=== PATIENT | female | born 1990 | race American Indian/Alaskan Native ===

== ENCOUNTER 2018-10-31 20:48 | Emergency (ER) | payer SELFPAY ==
[2018-10-31 22:27] VITALS: BP 124/84
--- NOTE | 2018-10-31 22:27 | Event Note ---
ED Screening Note Date of service: 10/31/18 Time: 22:26 ED Screening Note: 27 y/o female with a history of psych disorder comes in for needing refills on her medication. This initial assessment/diagnostic orders/clinical plan/treatment(s) is/are subject to change based on patients health status, clinical progression and re- assessment by fellow clinical providers in the ED. Further treatment and workup at subsequent clinical providers discretion. Patient/guardian urged not to elope from the ED as their condition may be serious if not clinically assessed and managed. Initial orders include:
--- NOTE | 2018-10-31 23:48 | Emergency Department Report ---
ED Medical Clearance [facility] - General Chief complaint: Medical Clearance Stated complaint: MEDICATION REFILL Time Seen by Provider: 10/31/18 22:26 Source: patient Mode of arrival: Ambulatory - History of Present Illness Initial comments: Patient is a 27 yo AA female with a h/o chronic schizophrenia, Bipolar d/o, anxiety and depression and who is on medication presented to the ED accompanied by her mother for medication refills after she ran out of her medications 1 week ago. Per mother, patient is compliant with her medications and is currently stable. Mother also states that the patient has not had any chest pain, dyspnea, nausea, vomiting, dizziness, fever, chills, dysuria, hematuria, headache or suicidal and homicidal ideations, hallucinations or vision changes. MD Complaint: medical clearance request, other (Medication refills) -: Gradual, week(s) (1) Reason for Medical Clearance: psychiatric condition (chronic schizophrenia) Place: home Alledged Intoxication: No Compliant with Home Medications: Yes (Ran out of her medications) Traumatic Symptoms: denies traumatic injury Associated Symptoms: denies: chest pain, shortness of breath, palpitations, diaphoresis, denies other symptoms, confusion, cough, fever/chills, headaches, anorexia, malaise, nausea/vomiting, rash, seizure, syncope, weakness, other Treatments Prior to Arrival: none Home medications: Previous Rx's Medication Instructions Recorded Last Taken Type Benztropine Mesylate 1 mg PO Q12H #60 tablet 10/31/18 Unknown Rx Divalproex ER [Depakote ER] 500 mg PO Q12H #60 tablet 10/31/18 Unknown Rx OLANzapine [Zyprexa] 10 mg PO QHS #30 tablet 10/31/18 Unknown Rx Allergies/Adverse reactions: Allergies Allergy/AdvReac Type Severity Reaction Status Date / Time No Known Allergies Allergy Unverified 10/31/18 21:41 ED Review of Systems ROS: Stated complaint: MEDICATION REFILL Other details as noted in HPI Comment: All other systems reviewed and negative Constitutional: denies: chills, fever Eyes: denies: eye pain, eye discharge, vision change ENT: denies: ear pain, throat pain Respiratory: denies: cough, shortness of breath, wheezing Cardiovascular: denies: chest pain, palpitations Endocrine: no symptoms reported Gastrointestinal: denies: abdominal pain, nausea, diarrhea Genitourinary: denies: urgency, dysuria, discharge Musculoskeletal: denies: back pain, joint swelling, arthralgia Skin: denies: rash, lesions Neurological: denies: headache, weakness, paresthesias Psychiatric: denies: anxiety, depression Hematological/Lymphatic: denies: easy bleeding, easy bruising ED Past Medical Hx - Past Medical History Previous Medical History?: Yes Hx Psychiatric Treatment: Yes (Schizophrenia, Bipolar, NOS, Anxiety, panic) - Surgical History Past Surgical History?: No - Social History Smoking Status: Current Every Day Smoker Substance Use Type: None - Medications Home Medications: Home Medications Medication Instructions Recorded Confirmed Last Taken Type Benztropine Mesylate 1 mg PO Q12H #60 tablet 10/31/18 Unknown Rx Divalproex ER [Depakote ER] 500 mg PO Q12H #60 tablet 10/31/18 Unknown Rx OLANzapine [Zyprexa] 10 mg PO QHS #30 tablet 10/31/18 Unknown Rx ED Physical Exam - General Limitations: No Limitations General appearance: alert, in no apparent distress - Head Head exam: Present: atraumatic, normocephalic, normal inspection - Eye Eye exam: Present: normal appearance, PERRL, EOMI Pupils: Present: normal accommodation - ENT ENT exam: Present: normal exam, normal orophraynx, mucous membranes moist, TM's normal bilaterally, normal external ear exam - Neck Neck exam: Present: normal inspection, full ROM. Absent: tenderness, meningismus, lymphadenopathy, thyromegaly - Respiratory Respiratory exam: Present: normal lung sounds bilaterally. Absent: respiratory distress, wheezes, rales, rhonchi, stridor, chest wall tenderness, accessory muscle use, decreased breath sounds, prolonged expiratory - Cardiovascular Cardiovascular Exam: Present: regular rate, normal rhythm, normal heart sounds. Absent: systolic murmur, diastolic murmur, rubs, gallop - GI/Abdominal GI/Abdominal exam: Present: soft, normal bowel sounds. Absent: tenderness, guarding, rebound, hyperactive bowel sounds, hypoactive bowel sounds, mass, bruit, pulsatile mass - Rectal Rectal exam: Present: deferred - Extremities Exam Extremities exam: Present: normal inspection, full ROM, normal capillary refill - Back Exam Back exam: Present: normal inspection, full ROM. Absent: tenderness, CVA tenderness (R), CVA tenderness (L), muscle spasm, paraspinal tenderness, vertebral tenderness - Neurological Exam Neurological exam: Present: alert, oriented X3, CN II-XII intact, normal gait, reflexes normal - Psychiatric Psychiatric exam: Present: normal affect, normal mood, anxious. Absent: depressed, agitated, homicidal ideation, suicidal ideation - Skin Skin exam: Present: warm, dry, intact, normal color. Absent: rash ED Course Vital Signs 10/31/18 22:25 Temperature 97.8 F Pulse Rate 94 H Respiratory 18 Rate Blood Pressure 124/84 O2 Sat by Pulse 99 Oximetry - Reevaluation(s) Reevaluation #1: 11/01/18 00:15 This is a 27 yo AA female with a h/o chronic schizophrenia and Bipolar d/o, anxiety and depression who presented to the ED for medication refills after she ran out of her medications 1 week ago. Per mother patient and family recently relocated to the area and have an appointment with her Psychiatrist in 1 month's time. In the ED, patient is alert and oriented x 3 and is in no acute process. Patient is not suicidal or homicidal and is in no acute distress. Patient's medications were refilled and mother and patient advised to ensure that they follow up with the Psychiatrist as previously scheduled. Mother advised to have the patient return to the ED immediately if symptoms get worse. ED Medical Decision Making - Medical Decision Making This is a 27 yo AA female with a h/o chronic schizophrenia and Bipolar d/o, anxiety and depression who presented to the ED for medication refills after she ran out of her medications 1 week ago. Per mother patient and family recently relocated to the area and have an appointment with her Psychiatrist in 1 month's time. In the ED, patient is alert and oriented x 3 and is in no acute process. Patient is not suicidal or homicidal and is in no acute distress. Patient's medications were refilled and mother and patient advised to ensure that they follow up with the Psychiatrist as previously scheduled. Mother advised to have the patient return to the ED immediately if symptoms get worse. - Differential Diagnosis chronic schizophrenia; Chronic bipolar d/o; chronic depression; Anxiety ED Disposition Clinical Impression: Medication refill, Chronic schizophrenia Disposition: DC-01 TO HOME OR SELFCARE Is pt being admited?: No Does the pt Need Aspirin: No Condition: Stable Instructions: Schizophrenia (ED) Additional Instructions: Take your regular medications as previously scheduled, follow-up with her primary care physician or psychiatrist in 7-10 days for reevaluation. Return to the ED immediately if symptoms get worse. Prescriptions: OLANzapine [Zyprexa] 10 mg PO QHS #30 tablet Benztropine Mesylate 1 mg PO Q12H #60 tablet Divalproex ER [Depakote ER] 500 mg PO Q12H #60 tablet Referrals: [facility] [Outside] - 3-5 Days Time of Disposition: 23:43 Print Language: KISWAHILI
== END 2018-11-01 00:05 | disposition home or self-care (01) ==
LOC: ED 20:48
DX: F20.9 Schizophrenia, unspecified (principal); F31.9 Bipolar disorder, unspecified; Z76.0 Encounter for issue of repeat prescription
CPT/HCPCS: 99282

== ENCOUNTER 2019-12-10 18:11 | Emergency (ER) | payer SELFPAY ==
[2019-12-10 18:56] LABS: Basophils # (Auto) 0.1 K/mm3 (0.0-0.1); Basophils % (Auto) 0.8 % (0.0-1.8); Eosinophils % (Auto) 0.2 % (0.0-4.3); Hematocrit 35.5 % (30.3-42.9); Hemoglobin 12.8 gm/dl (10.1-14.3); Lymphocytes # (Auto) 3.5 K/mm3 (1.2-5.4); Lymphocytes % (Auto) 27.6 % (13.4-35.0); Mean Corpuscular HGB Conc 36 % (30-34); Mean Corpuscular Volume 88 fl (79-97); Platelet Count 224 K/mm3 (140-440); Red Blood Count 4.05 M/mm3 (3.65-5.03); Red Cell Distribution Width 14.4 % (13.2-15.2)
[2019-12-10 19:16] LABS: Blood Urea Nitrogen 10 mg/dL (7-17); Calcium 9.7 mg/dL (8.4-10.2); Hemolysis Index 43
[2019-12-10 19:21] LABS: BUN/Creatinine Ratio 14
[2019-12-10 22:15] LABS: Amphetamine Screen,Urine PRESUMPTIVE POSITIVE; Benzodiazepines Screen,Urine PRESUMPTIVE NEGATIVE; Cannabinoid Screen,Urine PRESUMPTIVE POSITIVE; Cocaine Screen,Urine PRESUMPTIVE POSITIVE; Methadone Screen,Urine PRESUMPTIVE NEGATIVE; Opiate Screen,Urine PRESUMPTIVE NEGATIVE
[2019-12-10 22:17] LABS: Bacteria,Urine 1+ /HPF (Negative); Bilirubin,Urine NEG (Negative); Blood,Urine NEG (Negative); Color,Urine Yellow (Yellow); Mucus,Urine FEW /HPF; Protein,Urine <15 mg/dL mg/dL (Negative); Urobilinogen,Urine < 2.0 mg/dL (<2.0)
--- NOTE | 2019-12-10 23:08 | Emergency Department Report ---
ED General Adult HPI - General Chief complaint: Medical Clearance Stated complaint: MH PUI?: No Time Seen by Provider: 12/10/19 23:06 Source: patient, EMS ( EMS documentation not available at time of chart dictation ), RN notes reviewed, old records reviewed Mode of arrival: Stretcher Limitations: No Limitations - History of Present Illness Initial comments: The patient was evaluated in the emergency department for symptoms described in the history of present illness. He/she was evaluated in the context of the global COVID-19 pandemic, which necessitated consideration that the patient might be at risk for infection with the virus that causes COVID-19. Institutional protocols and algorithms that pertain to the evaluation of patients at risk for COVID-19 are in a state of rapid change based on information released by regulatory bodies including the CDC and federal and state organizations. These policies and algorithms were followed during the patient's care in the emergency department. Please note that these policies, procedures and recommendations changed on a rapid basis. Patient is a 28-year-old female who presented to the ER feeling poorly after recreational drug consumption approximately 24 hours ago. Patient reports that she ingested crack cocaine, marijuana, and now indicates that she "feels badly." The ingestion was recreational and was yesterday. She was not trying to overdose deliberately or harm herself. She typically does not indulge in polysubstance. She denies headache, neck pain, chest pain, abdominal pain, shortness of breath, homicidality and suicidality. She occasionally uses recreational drugs. She denies urinary symptoms. She is asking to eat and drink at this time. -: Gradual Consistency: constant Improves with: none Worsens with: none - Related Data Previous Rx's Medication Instructions Recorded Last Taken Type Benztropine Mesylate 1 mg PO Q12H #60 tablet 10/31/18 Unknown Rx Divalproex ER [Depakote ER] 500 mg PO Q12H #60 tablet 10/31/18 Unknown Rx OLANzapine [Zyprexa] 10 mg PO QHS #30 tablet 10/31/18 Unknown Rx Allergies Allergy/AdvReac Type Severity Reaction Status Date / Time No Known Allergies Allergy Unverified 10/31/18 21:41 ED Review of Systems ROS: Stated complaint: MH Other details as noted in HPI Constitutional: malaise. denies: fever Eyes: denies: eye discharge Respiratory: denies: cough Cardiovascular: denies: chest pain Gastrointestinal: denies: abdominal pain Genitourinary: denies: dysuria Musculoskeletal: denies: arthralgia, myalgia Neurological: weakness Psychiatric: denies: homicidal thoughts, suicidal thoughts ED Past Medical Hx - Past Medical History Previous Medical History?: Yes Hx Psychiatric Treatment: Yes (Schizophrenia, Bipolar, NOS, Anxiety, panic) Additional medical history: Drug use - Surgical History Past Surgical History?: No - Social History Smoking Status: Current Every Day Smoker Substance Use Type: Alcohol, Cocaine, Marijuana, Methamphetamines - Medications Home Medications: Home Medications Medication Instructions Recorded Confirmed Last Taken Type Benztropine Mesylate 1 mg PO Q12H #60 tablet 10/31/18 Unknown Rx Divalproex ER [Depakote ER] 500 mg PO Q12H #60 tablet 10/31/18 Unknown Rx OLANzapine [Zyprexa] 10 mg PO QHS #30 tablet 10/31/18 Unknown Rx ED Physical Exam - General Limitations: No Limitations General appearance: alert, in no apparent distress - Head Head exam: Present: atraumatic, normocephalic - Eye Eye exam: Present: normal appearance, EOMI. Absent: conjunctival injection, nys tagmus - ENT ENT exam: Present: normal exam, normal orophraynx, mucous membranes moist, normal external ear exam - Neck Neck exam: Present: normal inspection, full ROM. Absent: tenderness, meningismus - Respiratory Respiratory exam: Present: normal lung sounds bilaterally. Absent: respiratory distress, wheezes, rales, rhonchi, stridor, chest wall tenderness - Cardiovascular Cardiovascular Exam: Present: regular rate, normal rhythm, normal heart sounds. Absent: bradycardia, tachycardia, irregular rhythm, systolic murmur, diastolic murmur, rubs, gallop - GI/Abdominal GI/Abdominal exam: Present: soft. Absent: distended, tenderness, guarding, rebound, rigid, pulsatile mass - Extremities Exam Extremities exam: Present: normal inspection, full ROM, other (2+ pulses noted in the bilateral upper and lower extremities. There is no palpable cord. negative Homans sign. Muscular compartments are soft. The pelvis is stable.). Absent: pedal edema, calf tenderness - Back Exam Back exam: Present: normal inspection, full ROM. Absent: tenderness, CVA tenderness (R), CVA tenderness (L), paraspinal tenderness, vertebral tenderness - Neurological Exam Neurological exam: Present: alert, oriented X3, normal gait, other (No facial droop. Tongue midline. Extraocular movements intact bilaterally. Facial sensation intact to light touch in V1, V2, V3 distribution bilaterally. 5 and a 5 strength in 4 extremities. Sensation intact to light touch in 4 extremities.). Absent: motor sensory deficit - Psychiatric Psychiatric exam: Present: normal affect, normal mood. Absent: homicidal ideation, suicidal ideation - Skin Skin exam: Present: warm, dry, intact, normal color. Absent: rash ED Course Vital Signs 12/10/19 12/10/19 12/10/19 18:35 18:36 19:37 Temperature 98.9 F 98.9 F 98.0 F Pulse Rate 101 H 104 H 109 H Respiratory 18 18 20 Rate Blood Pressure 140/95 140/95 125/87 O2 Sat by Pulse 99 98 100 Oximetry - Reevaluation(s) Reevaluation #1: 12/10/19 23:50 Tachycardia resolved. Elevated CK not consistent with rhabdomyolysis. It will decrease on its own with oral hydration. ED Medical Decision Making - Lab Data Result diagrams: 12/10/19 18:42 12/10/19 18:42 Vital Signs 12/10/19 12/10/19 12/10/19 18:35 18:36 19:37 Temperature 98.9 F 98.9 F 98.0 F Pulse Rate 101 H 104 H 109 H Respiratory 18 18 20 Rate Blood Pressure 140/95 140/95 125/87 O2 Sat by Pulse 99 98 100 Oximetry Lab Results 12/10/19 12/10/19 12/10/19 Range/Units 18:42 18:42 18:42 WBC (4.5-11.0) K/mm3 RBC (3.65-5.03) M/mm3 Hgb (10.1-14.3) gm/dl Hct (30.3-42.9) % MCV (79-97) fl MCH (28-32) pg MCHC (30-34) % RDW (13.2-15.2) % Plt Count (140-440) K/mm3 Lymph % (Auto) (13.4-35.0) % Ferry % (Auto) (0.0-7.3) % Eos % (Auto) (0.0-4.3) % Baso % (Auto) (0.0-1.8) % Lymph # (1.2-5.4) K/mm3 Ferry # (0.0-0.8) K/mm3 Eos # (0.0-0.4) K/mm3 Baso # (0.0-0.1) K/mm3 Seg Neutrophils % (40.0-70.0) % Seg Neutrophils # (1.8-7.7) K/mm3 Sodium 135 L (137-145) mmol/L Potassium 3.5 L (3.6-5.0) mmol/L Chloride 98.9 (98-107) mmol/L Carbon Dioxide 19 L (22-30) mmol/L Anion Gap 21 mmol/L BUN 10 (7-17) mg/dL Creatinine 0.7 (0.6-1.2) mg/dL Estimated GFR > 60 ml/min BUN/Creatinine Ratio 14 % Glucose 94 (65-100) mg/dL Calcium 9.7 (8.4-10.2) mg/dL Urine Color (Yellow) Urine Turbidity (Clear) Urine pH (5.0-7.0) Ur Specific Ava (1.003-1.030) Urine Protein (Negative) mg/dL Urine Glucose (UA) (Negative) mg/dL Urine Ketones (Negative) mg/dL Urine Blood (Negative) Urine Nitrite (Negative) Urine Bilirubin (Negative) Urine Urobilinogen (<2.0) mg/dL Ur Leukocyte Esterase (Negative) Urine WBC (Auto) (0.0-6.0) /HPF Urine RBC (Auto) (0.0-6.0) /HPF U Epithel Cells (Auto) (0-13.0) /HPF Urine Bacteria (Auto) (Negative) /HPF Urine Mucus /HPF Salicylates < 0.3 L (2.8-20.0) mg/dL Urine Opiates Screen Urine Methadone Screen Acetaminophen 5.0 L (10.0-30.0) ug/mL Ur Barbiturates Screen Ur Phencyclidine Scrn Ur Amphetamines Screen U Benzodiazepines Scrn Urine Cocaine Screen U Marijuana (THC) Screen Drugs of Abuse Note Plasma/Serum Alcohol (0-0.07) % 12/10/19 12/10/19 12/10/19 Range/Units 18:42 18:42 20:55 WBC 12.7 H (4.5-11.0) K/mm3 RBC 4.05 (3.65-5.03) M/mm3 Hgb 12.8 (10.1-14.3) gm/dl Hct 35.5 (30.3-42.9) % MCV 88 (79-97) fl MCH 32 (28-32) pg MCHC 36 H (30-34) % RDW 14.4 (13.2-15.2) % Plt Count 224 (140-440) K/mm3 Lymph % (Auto) 27.6 (13.4-35.0) % Ferry % (Auto) 8.0 H (0.0-7.3) % Eos % (Auto) 0.2 (0.0-4.3) % Baso % (Auto) 0.8 (0.0-1.8) % Lymph # 3.5 (1.2-5.4) K/mm3 Ferry # 1.0 H (0.0-0.8) K/mm3 Eos # 0.0 (0.0-0.4) K/mm3 Baso # 0.1 (0.0-0.1) K/mm3 Seg Neutrophils % 63.4 (40.0-70.0) % Seg Neutrophils # 8.1 H (1.8-7.7) K/mm3 Sodium (137-145) mmol/L Potassium (3.6-5.0) mmol/L Chloride (98-107) mmol/L Carbon Dioxide (22-30) mmol/L Anion Gap mmol/L BUN (7-17) mg/dL Creatinine (0.6-1.2) mg/dL Estimated GFR ml/min BUN/Creatinine Ratio % Glucose (65-100) mg/dL Calcium (8.4-10.2) mg/dL Urine Color Yellow (Yellow) Urine Turbidity Clear (Clear) Urine pH 8.0 H (5.0-7.0) Ur Specific Ava 1.019 (1.003-1.030) Urine Protein <15 mg/dl (Negative) mg/dL Urine Glucose (UA) Neg (Negative) mg/dL Urine Ketones 20 (Negative) mg/dL Urine Blood Neg (Negative) Urine Nitrite Neg (Negative) Urine Bilirubin Neg (Negative) Urine Urobilinogen < 2.0 (<2.0) mg/dL Ur Leukocyte Esterase Neg (Negative) Urine WBC (Auto) 1.0 (0.0-6.0) /HPF Urine RBC (Auto) 2.0 (0.0-6.0) /HPF U Epithel Cells (Auto) 5.0 (0-13.0) /HPF Urine Bacteria (Auto) 1+ (Negative) /HPF Urine Mucus Few /HPF Salicylates (2.8-20.0) mg/dL Urine Opiates Screen Urine Methadone Screen Acetaminophen (10.0-30.0) ug/mL Ur Barbiturates Screen Ur Phencyclidine Scrn Ur Amphetamines Screen U Benzodiazepines Scrn Urine Cocaine Screen U Marijuana (THC) Screen Drugs of Abuse Note Plasma/Serum Alcohol < 0.01 (0-0.07) % 12/10/19 Range/Units 20:55 WBC (4.5-11.0) K/mm3 RBC (3.65-5.03) M/mm3 Hgb (10.1-14.3) gm/dl Hct (30.3-42.9) % MCV (79-97) fl MCH (28-32) pg MCHC (30-34) % RDW (13.2-15.2) % Plt Count (140-440) K/mm3 Lymph % (Auto) (13.4-35.0) % Ferry % (Auto) (0.0-7.3) % Eos % (Auto) (0.0-4.3) % Baso % (Auto) (0.0-1.8) % Lymph # (1.2-5.4) K/mm3 Ferry # (0.0-0.8) K/mm3 Eos # (0.0-0.4) K/mm3 Baso # (0.0-0.1) K/mm3 Seg Neutrophils % (40.0-70.0) % Seg Neutrophils # (1.8-7.7) K/mm3 Sodium (137-145) mmol/L Potassium (3.6-5.0) mmol/L Chloride (98-107) mmol/L Carbon Dioxide (22-30) mmol/L Anion Gap mmol/L BUN (7-17) mg/dL Creatinine (0.6-1.2) mg/dL Estimated GFR ml/min BUN/Creatinine Ratio % Glucose (65-100) mg/dL Calcium (8.4-10.2) mg/dL Urine Color (Yellow) Urine Turbidity (Clear) Urine pH (5.0-7.0) Ur Specific Ava (1.003-1.030) Urine Protein (Negative) mg/dL Urine Glucose (UA) (Negative) mg/dL Urine Ketones (Negative) mg/dL Urine Blood (Negative) Urine Nitrite (Negative) Urine Bilirubin (Negative) Urine Urobilinogen (<2.0) mg/dL Ur Leukocyte Esterase (Negative) Urine WBC (Auto) (0.0-6.0) /HPF Urine RBC (Auto) (0.0-6.0) /HPF U Epithel Cells (Auto) (0-13.0) /HPF Urine Bacteria (Auto) (Negative) /HPF Urine Mucus /HPF Salicylates (2.8-20.0) mg/dL Urine Opiates Screen Presumptive negative Urine Methadone Screen Presumptive negative Acetaminophen (10.0-30.0) ug/mL Ur Barbiturates Screen Presumptive negative Ur Phencyclidine Scrn Presumptive negative Ur Amphetamines Screen Presumptive positive U Benzodiazepines Scrn Presumptive negative Urine Cocaine Screen Presumptive positive U Marijuana (THC) Screen Presumptive positive Drugs of Abuse Note Disclamer Plasma/Serum Alcohol (0-0.07) % - EKG Data -: EKG Interpreted by Vt EKG shows normal: sinus rhythm Rate: normal - EKG Data 12/10/19 23:22 Sinus rhythm, 80 bpm, normal axis, normal intervals, high left ventricular voltage, minimal motion artifact. The EKG is abnormal. The EKG is not a STEMI - Medical Decision Making Differential diagnosis, include but not limited to: Dehydration, polysubstance use/abuse, side effects of illicit drugs Assessment and plan: 28-year-old female, who is currently afebrile, with reassuring vital signs, who is clinically sober at this time, who is not homicidal or suicidal, who is presenting is calm and cooperative, with no active vomiting, with minimal dehydration, leukocytosis which is likely a stress reaction secondary to crack cocaine ingestion, likely presenting with side effects of polysubstance use/indulgence. No active vomiting at this time, and tachycardia has resolved. Patient has been counseled to avoid recreational drug consumption. She has no emergent medical condition at this time, and she does not meet criteria for 1013 or involuntary hold at this time. She can be provided with outpatient resources to follow-up for polysubstance use. Critical care attestation.: If time is entered above; I have spent that time in minutes in the direct care of this critically ill patient, excluding procedure time. ED Disposition Clinical Impression: Polysubstance abuse Disposition: DC-01 TO HOME OR SELFCARE Is pt being admited?: No Does the pt Need Aspirin: No Condition: Stable Additional Instructions: Recommend that patient avoid consumption of recreational/illegal/illicit drugs. Consumption of the aforementioned may cause addiction, disability, paralysis, loss of quality of life. Please drink 4 to 6 cups of water per day indefinitely, patient may alternate Tylenol and/or ibuprofen as needed [id number] for pain, and/or discomfort. Take a multivitamin [id number] as well. For the patient's convenience, local outpatient substance abuse programs have been listed. Please follow-up with your primary care doctor within the next 3 to 5 days for repeat checkup/evaluation. In the meantime, avoid consumption of recreational drugs, drink 4 to 6 cups of water per day, and please have the physician that you follow-up with recheck basic laboratory tests, including a basic metabolic panel, and a creatinine kinase. Patient was found to have mild dehydration, and slightly elevated creatinine kinase level, likely secondary to polysubstance ingestion. Please return to the emergency room right away with new pain, worsened pain, migration of pain, rectal vomiting, change in mental status, confusion, inability to tolerate liquid feeds, new, worsened or different symptoms not present on the initial emergency room evaluation. In case of an emergency, please contact the following numbers: [place] Crisis and Access Line: Number: Crisis Text Line: (Text ``START) Number: [phone] Suicide Prevention Line: Number: Emergency Number: 911 SUBSTANCE ABUSE PROGRAMS: [facility] [place]: Location: [place], [place] [employer] Address: [address] [place] [address] [facility]: Address: [address] [place] [address] [place] [address] [facility]: Address: [address] [place] [address] [facility]: Address: [address] [place] [address] [facility] Address: [address] [place] [address]. Please contact above numbers to attempt placement into free based program. Medicaid Programs: [facility]: Address: [address] [place] [address] [facility]: Address: [address] [place] [id number] Referrals: [facility] [Provider Group] - 3-5 Days [facility] [Provider Group] - 3-5 Days
[2019-12-10 23:30] LABS: HCG Qualitative,Urine Negative (Negative)
[2019-12-11 00:05] VITALS: BP 137/97
== END 2019-12-11 00:07 | disposition home or self-care (01) ==
LOC: ED 18:11
DX: F15.10 Other stimulant abuse, uncomplicated (principal); F20.89 Other schizophrenia; F31.9 Bipolar disorder, unspecified; F17.200 Nicotine dependence, unspecified, uncomplicated; F12.10 Cannabis abuse, uncomplicated; F14.10 Cocaine abuse, uncomplicated
CPT/HCPCS: 36415; 80048; 80307; 80320; 81001; 81025; 82550; 85025; 93005; G0480

== ENCOUNTER 2019-12-15 20:53 | Emergency (ER) | payer SELFPAY ==
[2019-12-15 21:45] VITALS: BP 126/94
[2019-12-15 22:51] LABS: Bacteria,Urine 1+ /HPF (Negative); Bilirubin,Urine NEG (Negative); Blood,Urine LG (Negative); Color,Urine Yellow (Yellow); Mucus,Urine 1+ /HPF
[2019-12-15 22:59] LABS: HCG Qualitative,Urine Negative (Negative)
--- NOTE | 2019-12-15 23:42 | Emergency Department Report ---
ED General Adult HPI - General Chief complaint: Back Pain/Injury Stated complaint: TEST Time Seen by Provider: 12/15/19 22:56 Source: patient Mode of arrival: Ambulatory Limitations: No Limitations - History of Present Illness Initial comments: 28-year-old F Lao female resents emergency department complaining of taking a 500 mg Depakote and being concerned backslash she feels she may have been . States that she is currently on her menses but she just feels that she is and wants a test to be performed urinalysis was obtained upon her entry into the emergency department. States that she has had some vague back pain and nausea with a dull headache a few days ago as well but not present at current. Ports no current vaginal bleeding no no hematuria no hematemesis no hematochezia. Ports no fever, chills, sweats. - Related Data Previous Rx's Medication Instructions Recorded Last Taken Type Benztropine Mesylate 1 mg PO Q12H #60 tablet 10/31/18 Unknown Rx Divalproex ER [Depakote ER] 500 mg PO Q12H #60 tablet 10/31/18 Unknown Rx OLANzapine [Zyprexa] 10 mg PO QHS #30 tablet 10/31/18 Unknown Rx Allergies Allergy/AdvReac Type Severity Reaction Status Date / Time No Known Allergies Allergy Unverified 10/31/18 21:41 ED Review of Systems ROS: Stated complaint: TEST Other details as noted in HPI Comment: All other systems reviewed and negative ED Past Medical Hx - Past Medical History Previous Medical History?: Yes Hx Psychiatric Treatment: Yes (Schizophrenia, Bipolar, NOS, Anxiety, panic) Additional medical history: Drug use - Surgical History Past Surgical History?: No - Social History Smoking Status: Current Every Day Smoker Substance Use Type: None - Medications Home Medications: Home Medications Medication Instructions Recorded Confirmed Last Taken Type Benztropine Mesylate 1 mg PO Q12H #60 tablet 10/31/18 Unknown Rx Divalproex ER [Depakote ER] 500 mg PO Q12H #60 tablet 10/31/18 Unknown Rx OLANzapine [Zyprexa] 10 mg PO QHS #30 tablet 10/31/18 Unknown Rx ED Physical Exam - General Limitations: No Limitations General appearance: alert, in no apparent distress - Head Head exam: Present: atraumatic, normocephalic - Eye Eye exam: Present: normal appearance - ENT ENT exam: Present: mucous membranes moist - Neck Neck exam: Present: normal inspection - Respiratory Respiratory exam: Present: normal lung sounds bilaterally. Absent: respiratory distress - Cardiovascular Cardiovascular Exam: Present: regular rate, normal rhythm. Absent: systolic murmur, diastolic murmur, rubs, gallop - GI/Abdominal GI/Abdominal exam: Present: soft, normal bowel sounds - Extremities Exam Extremities exam: Present: normal inspection - Back Exam Back exam: Present: normal inspection - Neurological Exam Neurological exam: Present: alert, oriented X3 - Psychiatric Psychiatric exam: Present: normal affect, normal mood - Skin Skin exam: Present: warm, dry, intact, normal color. Absent: rash ED Course Vital Signs 12/15/19 21:42 Temperature 98.1 F Pulse Rate 84 Respiratory 18 Rate Blood Pressure 126/94 O2 Sat by Pulse 100 Oximetry ED Medical Decision Making - Medical Decision Making 28-year-old F La[place] female presents emerged department primarily to receive a test she is not we will perform one outside of the emergency department but does have a strong feeling that she is and has taken some Depakote and want to make sure she is not her her . Blood and oriented x3 no acute distress no suicidal homicidal ideation reports no mental health history. Critical care attestation.: If time is entered above; I have spent that time in minutes in the direct care of this critically ill patient, excluding procedure time. ED Disposition Clinical Impression: Negative test, Nausea Disposition: DC-01 TO HOME OR SELFCARE Is pt being admited?: No Does the pt Need Aspirin: No Condition: Stable Instructions: Acute Nausea and Vomiting (ED) Additional Instructions: Discussed with Ms. Hammond that the community resources to help her with her suspicion should they arise again no evidence of any urgent or emergent medical condition is present Referrals: PRIMARY CAREMD [Primary Care Provider] - 3-5 Days [facility] [Provider Group] - 3-5 Days
== END 2019-12-15 23:55 | disposition home or self-care (01) ==
LOC: ED 20:53
DX: R11.0 Nausea (principal); R51 Headache; M54.89 Other dorsalgia; F20.89 Other schizophrenia; F41.9 Anxiety disorder, unspecified; F32.89 Other specified depressive episodes; F17.200 Nicotine dependence, unspecified, uncomplicated
CPT/HCPCS: 81001; 81025; 99283

== ENCOUNTER 2020-01-02 03:07 | Emergency (ER) | payer SELFPAY ==
[2020-01-02 04:21] LABS: Bacteria,Urine 1+ /HPF (Negative); Bilirubin,Urine NEG (Negative); Blood,Urine NEG (Negative); Color,Urine Yellow (Yellow); Mucus,Urine FEW /HPF; Protein,Urine <15 mg/dL mg/dL (Negative); Urobilinogen,Urine < 2.0 mg/dL (<2.0)
[2020-01-02 04:23] LABS: Amphetamine Screen,Urine PRESUMPTIVE NEGATIVE; Benzodiazepines Screen,Urine PRESUMPTIVE NEGATIVE; Cannabinoid Screen,Urine PRESUMPTIVE NEGATIVE; Cocaine Screen,Urine PRESUMPTIVE NEGATIVE; Methadone Screen,Urine PRESUMPTIVE NEGATIVE; Opiate Screen,Urine PRESUMPTIVE NEGATIVE
[2020-01-02 04:45] LABS: Basophils # (Auto) 0.1 K/mm3 (0.0-0.1); Basophils % (Auto) 0.8 % (0.0-1.8); Eosinophils # (Auto) 0.1 K/mm3 (0.0-0.4); Eosinophils % (Auto) 0.9 % (0.0-4.3); Hematocrit 35.9 % (30.3-42.9); Hemoglobin 12.5 gm/dl (10.1-14.3); Lymphocytes # (Auto) 3.3 K/mm3 (1.2-5.4); Lymphocytes % (Auto) 31.2 % (13.4-35.0); Mean Corpuscular HGB Conc 35 % (30-34); Mean Corpuscular Volume 89 fl (79-97); Monocytes # (Auto) 0.8 K/mm3 (0.0-0.8); Monocytes % (Auto) 7.7 % (0.0-7.3); Platelet Count 263 K/mm3 (140-440); Red Blood Count 4.02 M/mm3 (3.65-5.03); Red Cell Distribution Width 15.6 % (13.2-15.2)
[2020-01-02 04:48] LABS: HCG Qualitative,Urine Negative (Negative)
[2020-01-02 04:59] LABS: Blood Urea Nitrogen 11 mg/dL (7-17); Hemolysis Index 4
[2020-01-02 05:05] LABS: BUN/Creatinine Ratio 18
[2020-01-02] MEDS ORDERED: ACETAMINOPHEN 325 MG TAB PO ONE (05:26)
[2020-01-02] MEDS ORDERED: ACETAMINOPHEN 325 MG TAB ONE (05:27)
[2020-01-02 07:45] VITALS: BP 140/84
--- NOTE | 2020-01-02 08:09 | Emergency Department Report ---
ED General Adult HPI - General Chief complaint: Psych Stated complaint: PANIC ATTACK Time Seen by Provider: 01/02/20 06:27 Source: patient, family Mode of arrival: Wheelchair Limitations: No Limitations - History of Present Illness Initial comments: Patient presents to the emergency department with a chief complaint of anxiety. Patient states yesterday she had a anxiety attack and she felt like she was going to . Upon the patient's initial arrival to emergency department she was very agitated and was crying due to her symptoms. Patient states she is been off her psych meds for the last 2 days. Patient does have a psych medication bottles with her with the last being filled within the last 60 days. The date of filling and the dates she states she ran out actually coincide. Patient denies suicidal or homicidal ideations. Patient states she does hear voices but she has been hearing voices since she was 16 years old. -: Sudden Severity scale (0 -10): 0 Consistency: now resolved Improves with: none Worsens with: none Associated Symptoms: denies other symptoms Treatments Prior to Arrival: none - Related Data Home Medications Medication Instructions Recorded Confirmed Last Taken Sertraline [Zoloft] 50 mg PO QDAY 01/02/20 01/02/20 Unknown haloperidoL [Haloperidol] 10 mg PO QHS 01/02/20 01/02/20 Unknown Previous Rx's Medication Instructions Recorded Last Taken Type Benztropine Mesylate 1 mg PO Q12H #60 tablet 10/31/18 Unknown Rx Divalproex ER [Depakote ER] 500 mg PO Q12H #60 tablet 10/31/18 Unknown Rx OLANzapine [Zyprexa] 10 mg PO QHS #30 tablet 10/31/18 Unknown Rx Benztropine [Cogentin] 1 mg PO BID #24 tab 01/02/20 Unknown Rx Divalproex ER [DepaKOTE ER] 500 mg PO QDAY #60 tablet 01/02/20 Unknown Rx OLANzapine [ZyPREXA] 10 mg PO QHS #15 tablet 01/02/20 Unknown Rx Sertraline [Zoloft] 50 mg PO QDAY #15 tablet 01/02/20 Unknown Rx haloperidoL [Haldol] 5 mg PO QHS #15 tablet 01/02/20 Unknown Rx Allergies Allergy/AdvReac Type Severity Reaction Status Date / Time No Known Allergies Allergy Unverified 10/31/18 21:41 ED Review of Systems ROS: Stated complaint: PANIC ATTACK Other details as noted in HPI Comment: All other systems reviewed and negative Constitutional: denies: chills, fever Eyes: denies: eye pain, eye discharge, vision change ENT: denies: ear pain, throat pain Respiratory: denies: cough, shortness of breath, wheezing Cardiovascular: denies: chest pain, palpitations Endocrine: no symptoms reported Gastrointestinal: denies: abdominal pain, nausea, diarrhea Genitourinary: denies: urgency, dysuria, discharge Musculoskeletal: denies: back pain, joint swelling, arthralgia Skin: denies: rash, lesions Neurological: denies: headache, weakness, paresthesias Psychiatric: anxiety, auditory hallucinations. denies: depression Hematological/Lymphatic: denies: easy bleeding, easy bruising ED Past Medical Hx - Past Medical History Previous Medical History?: Yes Hx Diabetes: Yes Hx Psychiatric Treatment: Yes (Schizophrenia, Bipolar, NOS, Anxiety, panic) Additional medical history: Drug use - Surgical History Past Surgical History?: No - Social History Smoking Status: Current Every Day Smoker Substance Use Type: None - Medications Home Medications: Home Medications Medication Instructions Recorded Confirmed Last Taken Type Benztropine Mesylate 1 mg PO Q12H #60 tablet 10/31/18 01/02/20 Unknown Rx Divalproex ER [Depakote ER] 500 mg PO Q12H #60 tablet 10/31/18 01/02/20 Unknown Rx OLANzapine [Zyprexa] 10 mg PO QHS #30 tablet 10/31/18 01/02/20 Unknown Rx Benztropine [Cogentin] 1 mg PO BID #24 tab 01/02/20 Unknown Rx Divalproex ER [DepaKOTE ER] 500 mg PO QDAY #60 tablet 01/02/20 Unknown Rx OLANzapine [ZyPREXA] 10 mg PO QHS #15 tablet 01/02/20 Unknown Rx Sertraline [Zoloft] 50 mg PO QDAY 01/02/20 01/02/20 Unknown History Sertraline [Zoloft] 50 mg PO QDAY #15 tablet 01/02/20 Unknown Rx haloperidoL [Haldol] 5 mg PO QHS #15 tablet 01/02/20 Unknown Rx haloperidoL [Haloperidol] 10 mg PO QHS 01/02/20 01/02/20 Unknown History ED Physical Exam - General Limitations: No Limitations General appearance: alert, in no apparent distress - Head Head exam: Present: atraumatic, normocephalic - Eye Eye exam: Present: normal appearance, PERRL, EOMI - ENT ENT exam: Present: mucous membranes moist - Neck Neck exam: Present: normal inspection - Respiratory Respiratory exam: Present: normal lung sounds bilaterally. Absent: respiratory distress - Cardiovascular Cardiovascular Exam: Present: regular rate, normal rhythm. Absent: systolic murmur, diastolic murmur, rubs, gallop - GI/Abdominal GI/Abdominal exam: Present: soft, normal bowel sounds. Absent: distended, tenderness - Extremities Exam Extremities exam: Present: normal inspection - Back Exam Back exam: Present: normal inspection - Neurological Exam Neurological exam: Present: alert, oriented X3, CN II-XII intact. Absent: motor sensory deficit - Psychiatric Psychiatric exam: Present: normal affect, normal mood - Skin Skin exam: Present: warm, dry, intact, normal color. Absent: rash ED Course Vital Signs 01/02/20 01/02/20 01/02/20 03:30 05:28 06:28 Temperature 98.9 F Pulse Rate 91 H Respiratory 18 18 18 Rate Blood Pressure 130/91 Blood Pressure [Left] O2 Sat by Pulse 98 Oximetry 01/02/20 07:43 Temperature 98 F Pulse Rate 92 H Respiratory 19 Rate Blood Pressure Blood Pressure 140/84 [Left] O2 Sat by Pulse 96 Oximetry ED Medical Decision Making - Lab Data Result diagrams: 01/02/20 03:57 01/02/20 03:57 Lab Results 01/02/20 01/02/20 01/02/20 Range/Units 03:50 03:50 03:50 WBC (4.5-11.0) K/mm3 RBC (3.65-5.03) M/mm3 Hgb (10.1-14.3) gm/dl Hct (30.3-42.9) % MCV (79-97) fl MCH (28-32) pg MCHC (30-34) % RDW (13.2-15.2) % Plt Count (140-440) K/mm3 Lymph % (Auto) (13.4-35.0) % Travis % (Auto) (0.0-7.3) % Eos % (Auto) (0.0-4.3) % Baso % (Auto) (0.0-1.8) % Lymph # (Auto) (1.2-5.4) K/mm3 Travis # (Auto) (0.0-0.8) K/mm3 Eos # (Auto) (0.0-0.4) K/mm3 Baso # (Auto) (0.0-0.1) K/mm3 Seg Neutrophils % (40.0-70.0) % Seg Neutrophils # (1.8-7.7) K/mm3 Sodium (137-145) mmol/L Potassium (3.6-5.0) mmol/L Chloride (98-107) mmol/L Carbon Dioxide (22-30) mmol/L Anion Gap mmol/L BUN (7-17) mg/dL Creatinine (0.6-1.2) mg/dL Estimated GFR ml/min BUN/Creatinine Ratio % Glucose (65-100) mg/dL Calcium (8.4-10.2) mg/dL Urine Color Yellow (Yellow) Urine Turbidity Cloudy (Clear) Urine pH 6.0 (5.0-7.0) Ur Specific [place] 1.016 (1.003-1.030) Urine Protein <15 mg/dl (Negative) mg/dL Urine Glucose (UA) Neg (Negative) mg/dL Urine Ketones Tr (Negative) mg/dL Urine Blood Neg (Negative) Urine Nitrite Neg (Negative) Urine Bilirubin Neg (Negative) Urine Urobilinogen < 2.0 (<2.0) mg/dL Ur Leukocyte Esterase Neg (Negative) Urine WBC (Auto) 1.0 (0.0-6.0) /HPF Urine RBC (Auto) 1.0 (0.0-6.0) /HPF U Epithel Cells (Auto) 20.0 H (0-13.0) /HPF Urine Bacteria (Auto) 1+ (Negative) /HPF Urine Mucus Few /HPF Urine HCG, Qual Negative (Negative) Salicylates (2.8-20.0) mg/dL Urine Opiates Screen Presumptive negative Urine Methadone Screen Presumptive negative Acetaminophen (10.0-30.0) ug/mL Ur Barbiturates Screen Presumptive negative Ur Phencyclidine Scrn Presumptive negative Ur Amphetamines Screen Presumptive negative U Benzodiazepines Scrn Presumptive negative Urine Cocaine Screen Presumptive negative U Marijuana (THC) Screen Presumptive negative Drugs of Abuse Note Disclamer Plasma/Serum Alcohol (0-0.07) % 01/02/20 01/02/20 01/02/20 Range/Units 03:57 03:57 03:57 WBC (4.5-11.0) K/mm3 RBC (3.65-5.03) M/mm3 Hgb (10.1-14.3) gm/dl Hct (30.3-42.9) % MCV (79-97) fl MCH (28-32) pg MCHC (30-34) % RDW (13.2-15.2) % Plt Count (140-440) K/mm3 Lymph % (Auto) (13.4-35.0) % Travis % (Auto) (0.0-7.3) % Eos % (Auto) (0.0-4.3) % Baso % (Auto) (0.0-1.8) % Lymph # (Auto) (1.2-5.4) K/mm3 Travis # (Auto) (0.0-0.8) K/mm3 Eos # (Auto) (0.0-0.4) K/mm3 Baso # (Auto) (0.0-0.1) K/mm3 Seg Neutrophils % (40.0-70.0) % Seg Neutrophils # (1.8-7.7) K/mm3 Sodium 138 (137-145) mmol/L Potassium 3.8 (3.6-5.0) mmol/L Chloride 98.7 (98-107) mmol/L Carbon Dioxide 28 (22-30) mmol/L Anion Gap 15 mmol/L BUN 11 (7-17) mg/dL Creatinine 0.6 (0.6-1.2) mg/dL Estimated GFR > 60 ml/min BUN/Creatinine Ratio 18 % Glucose 139 H (65-100) mg/dL Calcium 10.0 (8.4-10.2) mg/dL Urine Color (Yellow) Urine Turbidity (Clear) Urine pH (5.0-7.0) Ur Specific [place] (1.003-1.030) Urine Protein (Negative) mg/dL Urine Glucose (UA) (Negative) mg/dL Urine Ketones (Negative) mg/dL Urine Blood (Negative) Urine Nitrite (Negative) Urine Bilirubin (Negative) Urine Urobilinogen (<2.0) mg/dL Ur Leukocyte Esterase (Negative) Urine WBC (Auto) (0.0-6.0) /HPF Urine RBC (Auto) (0.0-6.0) /HPF U Epithel Cells (Auto) (0-13.0) /HPF Urine Bacteria (Auto) (Negative) /HPF Urine Mucus /HPF Urine HCG, Qual (Negative) Salicylates < 0.3 L (2.8-20.0) mg/dL Urine Opiates Screen Urine Methadone Screen Acetaminophen 5.0 L (10.0-30.0) ug/mL Ur Barbiturates Screen Ur Phencyclidine Scrn Ur Amphetamines Screen U Benzodiazepines Scrn Urine Cocaine Screen U Marijuana (THC) Screen Drugs of Abuse Note Plasma/Serum Alcohol (0-0.07) % 01/02/20 01/02/20 Range/Units 03:57 03:57 WBC 10.5 (4.5-11.0) K/mm3 RBC 4.02 (3.65-5.03) M/mm3 Hgb 12.5 (10.1-14.3) gm/dl Hct 35.9 (30.3-42.9) % MCV 89 (79-97) fl MCH 31 (28-32) pg MCHC 35 H (30-34) % RDW 15.6 H (13.2-15.2) % Plt Count 263 (140-440) K/mm3 Lymph % (Auto) 31.2 (13.4-35.0) % Travis % (Auto) 7.7 H (0.0-7.3) % Eos % (Auto) 0.9 (0.0-4.3) % Baso % (Auto) 0.8 (0.0-1.8) % Lymph # (Auto) 3.3 (1.2-5.4) K/mm3 Travis # (Auto) 0.8 (0.0-0.8) K/mm3 Eos # (Auto) 0.1 (0.0-0.4) K/mm3 Baso # (Auto) 0.1 (0.0-0.1) K/mm3 Seg Neutrophils % 59.4 (40.0-70.0) % Seg Neutrophils # 6.2 (1.8-7.7) K/mm3 Sodium (137-145) mmol/L Potassium (3.6-5.0) mmol/L Chloride (98-107) mmol/L Carbon Dioxide (22-30) mmol/L Anion Gap mmol/L BUN (7-17) mg/dL Creatinine (0.6-1.2) mg/dL Estimated GFR ml/min BUN/Creatinine Ratio % Glucose (65-100) mg/dL Calcium (8.4-10.2) mg/dL Urine Color (Yellow) Urine Turbidity (Clear) Urine pH (5.0-7.0) Ur Specific [place] (1.003-1.030) Urine Protein (Negative) mg/dL Urine Glucose (UA) (Negative) mg/dL Urine Ketones (Negative) mg/dL Urine Blood (Negative) Urine Nitrite (Negative) Urine Bilirubin (Negative) Urine Urobilinogen (<2.0) mg/dL Ur Leukocyte Esterase (Negative) Urine WBC (Auto) (0.0-6.0) /HPF Urine RBC (Auto) (0.0-6.0) /HPF U Epithel Cells (Auto) (0-13.0) /HPF Urine Bacteria (Auto) (Negative) /HPF Urine Mucus /HPF Urine HCG, Qual (Negative) Salicylates (2.8-20.0) mg/dL Urine Opiates Screen Urine Methadone Screen Acetaminophen (10.0-30.0) ug/mL Ur Barbiturates Screen Ur Phencyclidine Scrn Ur Amphetamines Screen U Benzodiazepines Scrn Urine Cocaine Screen U Marijuana (THC) Screen Drugs of Abuse Note Plasma/Serum Alcohol < 0.01 (0-0.07) % - Medical Decision Making Laboratory values reviewed and upon further discussion with the patient she is here secondary to anxiety attack yesterday and to get a medication refill. Critical care attestation.: If time is entered above; I have spent that time in minutes in the direct care of this critically ill patient, excluding procedure time. ED Disposition Clinical Impression: Anxiety, Medication refill Disposition: TO HOME OR SELFCARE Is pt being admited?: No Does the pt Need Aspirin: No Condition: Stable Instructions: Anxiety (ED) Additional Instructions: return if there are any thoughts of hurting yourself or others Prescriptions: haloperidoL [Haldol] 5 mg PO QHS #15 tablet OLANzapine [ZyPREXA] 10 mg PO QHS #15 tablet Benztropine [Cogentin] 1 mg PO BID #24 tab Divalproex ER [DepaKOTE ER] 500 mg PO QDAY #60 tablet Sertraline [Zoloft] 50 mg PO QDAY #15 tablet Referrals: PRIMARY CARE, [Primary Care Provider] - 3-5 Days [facility] [[facility]] - 3-5 Days Time of Disposition: 08:10
== END 2020-01-02 08:39 | disposition home or self-care (01) ==
LOC: ED 03:07
DX: F41.9 Anxiety disorder, unspecified (principal); Z76.0 Encounter for issue of repeat prescription
CPT/HCPCS: 36415; 80048; 80307; 80320; 81001; 81025; 85025; 99283; G0480

== ENCOUNTER 2020-02-06 22:01 | Emergency (ER) | payer MEDICAID ==
[2020-02-07 00:25] LABS: Basophils % (Auto) 0.3 % (0.0-1.8); Eosinophils # (Auto) 0.1 K/mm3 (0.0-0.4); Hematocrit 34.2 % (30.3-42.9); Hemoglobin 12.2 gm/dl (10.1-14.3); Lymphocytes % (Auto) 37.8 % (13.4-35.0); Mean Corpuscular HGB Conc 36 % (30-34); Mean Corpuscular Volume 91 fl (79-97); Monocytes # (Auto) 0.8 K/mm3 (0.0-0.8); Monocytes % (Auto) 7.8 % (0.0-7.3); Platelet Count 228 K/mm3 (140-440); Red Blood Count 3.74 M/mm3 (3.65-5.03); Red Cell Distribution Width 14.4 % (13.2-15.2)
[2020-02-07 00:40] LABS: Alanine Aminotransferase 20 units/L (7-56); Albumin 3.9 g/dL (3.9-5); BUN/Creatinine Ratio 17; Blood Urea Nitrogen 10 mg/dL (7-17); Calcium 8.8 mg/dL (8.4-10.2); Hemolysis Index 30
--- NOTE | 2020-02-07 03:31 | Emergency Department Report ---
ED Abdominal Pain HPI - General Chief Complaint: Abdominal Pain Stated Complaint: ABD PAIN Time Seen by Provider: 02/07/20 02:56 Source: patient Mode of arrival: Ambulatory Limitations: No Limitations - History of Present Illness Initial Comments: 29-year-old female with history of bipolar disorder, presents to ED with abdominal pain since yesterday. Patient states pain is located in left upper quadrant, right upper quadrant, suprapubic area. She denies any fever, nausea or vomiting, dysuria, hematuria, urinary frequency. Patient reports some jose rrhea. Patient is requesting something to eat. MD Complaint: abdominal pain -: days(s) (1) Location: LUQ, RUQ, suprapubic Radiation: none Migration to: no migration Severity: mild Consistency: intermittent Improves With: nothing Worsens With: nothing Associated Symptoms: diarrhea. denies: nausea, vomiting, fever, dysuria, hematuria - Related Data Home Medications Medication Instructions Recorded Confirmed Last Taken Sertraline [Zoloft] 50 mg PO QDAY 01/02/20 01/02/20 Unknown haloperidoL [Haloperidol] 10 mg PO QHS 01/02/20 01/02/20 Unknown Previous Rx's Medication Instructions Recorded Last Taken Type Benztropine Mesylate 1 mg PO Q12H #60 tablet 10/31/18 Unknown Rx Divalproex ER [Depakote ER] 500 mg PO Q12H #60 tablet 10/31/18 Unknown Rx OLANzapine [Zyprexa] 10 mg PO QHS #30 tablet 10/31/18 Unknown Rx Benztropine [Cogentin] 1 mg PO BID #24 tab 01/02/20 Unknown Rx Divalproex ER [DepaKOTE ER] 500 mg PO QDAY #60 tablet 01/02/20 Unknown Rx OLANzapine [ZyPREXA] 10 mg PO QHS #15 tablet 01/02/20 Unknown Rx Sertraline [Zoloft] 50 mg PO QDAY #15 tablet 01/02/20 Unknown Rx haloperidoL [Haldol] 5 mg PO QHS #15 tablet 01/02/20 Unknown Rx Fluconazole (Nf) [Diflucan TAB] 150 mg PO ONCE #1 tablet 02/07/20 Unknown Rx Sulfamethoxazole/Trimethoprim 1 each PO BID #6 tablet 02/07/20 Unknown Rx [Bactrim DS TAB] Allergies Allergy/AdvReac Type Severity Reaction Status Date / Time No Known Allergies Allergy Unverified 10/31/18 21:41 ED Review of Systems ROS: Stated complaint: ABD PAIN Other details as noted in HPI Comment: All other systems reviewed and negative Constitutional: denies: fever Gastrointestinal: abdominal pain, diarrhea. denies: nausea, vomiting Genitourinary: denies: dysuria, frequency, hematuria ED Past Medical Hx - Past Medical History Hx Diabetes: Yes Hx Psychiatric Treatment: Yes (Schizophrenia, Bipolar, NOS, Anxiety, panic) Additional medical history: Drug use - Social History Smoking Status: Current Every Day Smoker Substance Use Type: Marijuana - Medications Home Medications: Home Medications Medication Instructions Recorded Confirmed Last Taken Type Benztropine Mesylate 1 mg PO Q12H #60 tablet 10/31/18 01/02/20 Unknown Rx Divalproex ER [Depakote ER] 500 mg PO Q12H #60 tablet 10/31/18 01/02/20 Unknown Rx OLANzapine [Zyprexa] 10 mg PO QHS #30 tablet 10/31/18 01/02/20 Unknown Rx Benztropine [Cogentin] 1 mg PO BID #24 tab 01/02/20 Unknown Rx Divalproex ER [DepaKOTE ER] 500 mg PO QDAY #60 tablet 01/02/20 Unknown Rx OLANzapine [ZyPREXA] 10 mg PO QHS #15 tablet 01/02/20 Unknown Rx Sertraline [Zoloft] 50 mg PO QDAY 01/02/20 01/02/20 Unknown History Sertraline [Zoloft] 50 mg PO QDAY #15 tablet 01/02/20 Unknown Rx haloperidoL [Haldol] 5 mg PO QHS #15 tablet 01/02/20 Unknown Rx haloperidoL [Haloperidol] 10 mg PO QHS 01/02/20 01/02/20 Unknown History Fluconazole (Nf) [Diflucan TAB] 150 mg PO ONCE #1 tablet 02/07/20 Unknown Rx Sulfamethoxazole/Trimethoprim 1 each PO BID #6 tablet 02/07/20 Unknown Rx [Bactrim DS TAB] ED Physical Exam - General Limitations: No Limitations General appearance: alert, in no apparent distress - Head Head exam: Present: atraumatic, normocephalic - Eye Eye exam: Present: normal appearance, EOMI - ENT ENT exam: Present: mucous membranes moist - Neck Neck exam: Present: normal inspection - Respiratory Respiratory exam: Present: normal lung sounds bilaterally. Absent: respiratory distress - Cardiovascular Cardiovascular Exam: Present: regular rate, normal rhythm - GI/Abdominal GI/Abdominal exam: Present: soft. Absent: distended, tenderness - Extremities Exam Extremities exam: Present: normal inspection - Neurological Exam Neurological exam: Present: alert, oriented X3 - Psychiatric Psychiatric exam: Present: normal affect, normal mood - Skin Skin exam: Present: warm, dry, intact, normal color ED Course Vital Signs 02/06/20 02/07/20 02/07/20 23:52 03:10 03:15 Temperature 98.4 F 98.2 F Pulse Rate 84 79 77 Respiratory 18 18 Rate Blood Pressure 135/98 132/91 Blood Pressure 140/93 [Left] O2 Sat by Pulse 100 98 100 Oximetry 02/07/20 02/07/20 03:41 04:15 Temperature Pulse Rate 80 84 Respiratory 19 14 Rate Blood Pressure 132/91 142/87 Blood Pressure [Left] O2 Sat by Pulse 99 Oximetry ED Medical Decision Making - Lab Data Result diagrams: 02/06/20 23:54 02/06/20 23:54 - Medical Decision Making 29-year-old female presents to ED with abdominal pain and diarrhea. Labs are unremarkable, except for UTI present on UA, showing positive nitrites, WBCs, bacteria and yeast. Vitals are stable. Patient will be discharged at this time with prescriptions. Outpatient follow-up advised, return precautions given. - Differential Diagnosis UTI, , gastroenteritis Critical care attestation.: If time is entered above; I have spent that time in minutes in the direct care of this critically ill patient, excluding procedure time. ED Disposition Clinical Impression: UTI (urinary tract infection) Disposition: - TO HOME OR SELFCARE Is pt being admited?: No Condition: Stable Instructions: Abdominal Pain (ED), Urinary Tract Infection, Adult Prescriptions: Sulfamethoxazole/Trimethoprim [Bactrim DS TAB] 1 each PO BID #6 tablet Fluconazole (Nf) [Diflucan TAB] 150 mg PO ONCE #1 tablet Referrals: PRIMARY CARE, [Primary Care Provider] - 3-5 Days Time of Disposition: 04:46
[2020-02-07 04:13] LABS: Bacteria,Urine 2+ /HPF (Negative); Bilirubin,Urine NEG (Negative); Blood,Urine LG (Negative); Color,Urine Yellow (Yellow); Mucus,Urine FEW /HPF; Protein,Urine <15 mg/dL mg/dL (Negative); Urobilinogen,Urine < 2.0 mg/dL (<2.0)
[2020-02-07 05:04] VITALS: BP 119/77
== END 2020-02-07 05:05 | disposition home or self-care (01) ==
LOC: ED 22:01
DX: N39.0 Urinary tract infection, site not specified (principal); E11.9 Type 2 diabetes mellitus without complications; F25.0 Schizoaffective disorder, bipolar type; F41.9 Anxiety disorder, unspecified; F17.200 Nicotine dependence, unspecified, uncomplicated; F12.10 Cannabis abuse, uncomplicated; Z79.899 Other long term (current) drug therapy
CPT/HCPCS: 36415; 80053; 81001; 84703; 85025; 99283